=== PATIENT | male | born 1965 | race Two or more races ===

== ENCOUNTER 2017-11-13 11:27 | Emergency (ER) | payer OTHER ==
[~2017-11-13] VITALS: Ht 170.2 cm; Wt 70.8 kg
[~2017-11-13 11:27] MED LIST: HYZAAR 50-12.51 EACH; JANUMET XR 50-1 EAC1
== END 2017-11-13 15:58 | disposition home or self-care (01) ==
LOC: ER 11:27
DX: K29.60 Other gastritis without bleeding (principal)